=== PATIENT | female | born 1975 | race Hispanic/Latino ===

== ENCOUNTER 2019-03-31 13:43 | Emergency (ER) | payer OTHER ==
[~2019-03-31] VITALS: Ht 160 cm; Wt 109.0 kg
[~2019-03-31 13:43] MED LIST: AMOXICILLIN500 MG PO; PREVACID30 M2 PO; PRILOSEC20 MG/CAP PO; ULTRAM50 M1 PO; ZOFRAN ODT4 MG PO
[2019-03-31 14:19] LABS: URINE BILIRUBIN - DIPSTICK NEGATIVE (NEGATIVE); URINE BLOOD DIPSTICK SMALL (NEGATIVE); URINE COLOR YELLOW; URINE GLUCOSE - DIPSTICK NEGATIVE (NEGATIVE); URINE KETONE NEGATIVE (NEGATIVE); URINE LEUK ESTERASE NEGATIVE (NEGATIVE); URINE NITRITE - DIPSTICK NEGATIVE (Negative); URINE PH 5.5 (4.5-8.0); URINE PROTEIN - DIPSTICK NEGATIVE (NEG-TRACE); URINE SPECIFIC GRAVITY 1.025; URINE UROBILINOGEN - DIPSTICK 0.2 E.U./dL (0.2)
[2019-03-31 14:36] LABS: URINE SQUAMOUS EPITHELIAL CELL FEW EPI/hpf (0-FEW)
[2019-03-31] MEDS ORDERED: MEDDOSEPAK PO (15:05)
[2019-03-31] MEDS ORDERED: DICLOFENAC75 MG PO (15:05)
[2019-03-31] MEDS ORDERED: FLEXERIL PO (15:05)
[2019-03-31] MEDS ORDERED: TRAMADOL HYDROC50 MG PO (15:05)
[2019-03-31 15:15] VITALS: BP 131/74
== END 2019-03-31 15:15 | disposition home or self-care (01) | DRG 563 ==
LOC: ED 13:43
PROVIDERS: Emergency Medicine
DX: S39.012A Strain of muscle, fascia and tendon of lower back, initial encounter (principal); X50.0XXA Overexertion from strenuous movement or load, initial encounter; Y93.89 Activity, other specified; Y92.009 Unspecified place in unspecified non-institutional (private) residence as the place of occurrence of the external cause

== ENCOUNTER 2019-04-22 14:40 | Emergency (ER) | payer OTHER ==
[~2019-04-22] VITALS: Ht 160 cm; Wt 118.0 kg
[~2019-04-22 14:40] MED LIST changes: +DICLOFENAC75 MG PO; +FLEXERIL PO; +MEDDOSEPAK PO; +TRAMADOL HYDROC50 MG PO
[2019-04-22] MEDS ORDERED: MEDDOSEPAK PO (15:44)
[2019-04-22] MEDS ORDERED: PEPCID20 MG PO (15:44)
[2019-04-22 16:10] VITALS: BP 133/70
== END 2019-04-22 16:10 | disposition home or self-care (01) | DRG 918 ==
LOC: ED 14:40
DX: T63.481A Toxic effect of venom of other arthropod, accidental (unintentional), initial encounter (principal)

== ENCOUNTER 2021-08-24 14:39 | Emergency (ER) | payer OTHER ==
[~2021-08-24] VITALS: Ht 160 cm; Wt 113.0 kg
[~2021-08-24 14:39] MED LIST changes: +PEPCID20 MG PO
[2021-08-24] MEDS ORDERED: PREDNISONE50 MG PO (17:37)
[2021-08-24] MEDS ORDERED: EPIPEN 2-P0.3 MG/0.3 IM (17:37)
[2021-08-24 17:40] VITALS: BP 131/57
== END 2021-08-24 17:57 | disposition home or self-care (01) | DRG 916 ==
LOC: ED 14:39
DX: T78.3XXA Angioneurotic edema, initial encounter (principal); Z68.41 Body mass index [BMI] 40.0-44.9, adult; E66.9 Obesity, unspecified